=== PATIENT | female | born 1970 | race African-American/Black ===

== ENCOUNTER 2019-09-10 19:44 | Emergency (ER) | payer OTHER, SELFPAY ==
[2019-09-10 19:48] VITALS: BP 174/80; PULSE 102; RESP 22; TEMP 37.2; O2SAT 98
--- NOTE | 2019-09-10 20:54 | PC.NURSE ---
called pt to take back to room, no response.
--- NOTE | 2019-09-10 21:03 | PC.NURSE ---
attempting to call pt to go back to room, no responce.
== END 2019-09-10 21:05 | disposition left against medical advice (07) ==
LOC: ANHED 21:06
PROVIDERS: Emergency Provider Emergency Medicine
DX: R05 Cough (principal)
CPT/HCPCS: 87804; 99199

== ENCOUNTER 2019-11-29 15:04 | Outpatient (CLI) | payer OTHER, SELFPAY ==
--- NOTE | ~2019-11-29 | MR_ITS ---
EXAMINATION: MR lumbar spine wo [facility] EXAM DATE: 11/29/2019 16:12 INDICATION: Low back pain. TECHNIQUE: Multi-sequential, multiplanar MR images of the lumbar spine were obtained without contrast . Sagittal T1, T2, T2 fat saturation images. Axial T2 weighted images. There is no prior study for comparison. FINDINGS: There are disc extrusions at T12-L1 and L1-2 which will be described below. There is mild d isc disease at all thoracolumbar levels. There is 3 mm retrolisthesis L5 on S1. The vertebral bodies are otherwise aligned. The conus medullaris terminates at the L1/2 level and has normal signal inte nsity and morphology. There are no suspicious marrow signal abnormalities. Paraspinal soft tissue is unremarkable. Level by level evaluation: T12-L1: There is mild disc bulge with superimposed small to moderate sized extrusion centrally, with cephalad migration. Facet arthropathy: Mild. Neural foraminal stenosis: Mild left. Central canal stenosis: Mild. L1-L2: There is a mild to moderate diffuse disc bulge asymmetric to the right with superimposed moder ate-sized right central extrusion, mild inferior migration. Facet arthropathy: Mild. Neural foraminal stenosis: Mild right. Central canal stenosis: Mild to moderate. L2-L3: There is a minimal diffuse disc bulge. Facet arthropathy: Mild to moderate. Neural foraminal stenosis: No stenosis. Central canal stenosis: No stenosis. L3-L4: There is a minimal diffuse disc bulge. Facet arthropathy: Mild to moderate. Neural foraminal stenosis: No stenosis. Central canal stenosis: No stenosis. L4-L5: There is a mild diffuse disc bulge. Facet arthropathy: Mild to moderate. Neural foraminal stenosis: Moderate left, mild to moderate right. Central canal stenosis: Mild. L5-S1: There is a mild to moderate diffuse disc bulge. Facet arthropathy: Mild to moderate. Neural foraminal stenosis: Mild to moderate left, mild right. Central canal stenosis: Mild. IMPRESSION: 1. T12-L1 and L1-2 disc extrusions as above. 2. Overall mild to moderate lumbar spondylosis. Reviewed, dictated and finalized at location A.
--- NOTE | ~2019-11-29 | XR_ITS ---
EXAMINATION: XR lumbar spine min 4V EXAM DATE: 11/29/2019 16:33 INDICATION: Low back pain, 2 cardiac stents. TECHNIQUE: Lumber spine frontal, lateral, lateral L5-S1 projections for interpretation. Additional l ateral flexion and lateral extension projections obtained. There are no prior studies for comparison. FINDINGS: Mild diffuse thoracolumbar disc disease. Large endplate osteophytes at the L3-4 level. Vert ebral bodies are aligned on all the lateral projections. There is mild to moderate number facet arthr opathy. Sacrum, sacroiliac joints, sacral arcuate lines are intact. Paraspinal soft tissue is unremar kable. IMPRESSION: Mild lumbar disc disease, mild to moderate arthropathy. Reviewed, dictated and finalized at location A.
== END 2019-11-29 15:05 | disposition home or self-care (01) ==
DX: M51.36 Other intervertebral disc degeneration, lumbar region (principal); M47.896 Other spondylosis, lumbar region; M51.25 Other intervertebral disc displacement, thoracolumbar region; M51.24 Other intervertebral disc displacement, thoracic region; M51.26 Other intervertebral disc displacement, lumbar region
CPT/HCPCS: 72110; 72148

== ENCOUNTER 2021-09-04 15:41 | Outpatient (CLI) | payer OTHER, SELFPAY ==
--- NOTE | ~2021-09-04 | XR_ITS ---
XR lumbar spine min 4V 09/04/2021 16:50 Indication: Back pain. Spondylosis. Procedure: 5 views lumbar spine Comparison: 11/29/2019 Findings: There is mild disc narrowing at L4-5 and L5-S1. There is facet hypertrophy of the mid and l ower lumbar spine. No fracture, subluxation or spondylolisthesis. Prominent ventral osteophytes at mu ltiple levels including L1-2, L2-3 and L3-4. Sacral foramen are symmetric. There is osteoarthritis of the right hip. Impression: 1: Mild-moderate lumbar spondylosis. Reviewed, dictated and finalized at location A. LE EXAMINER Impression: 1: Mild-moderate lumbar spondylosis.
== END 2021-09-04 15:42 | disposition home or self-care (01) ==
LOC: ANHIMG 15:48
PROVIDERS: PCP Family Medicine; Visit Provider Nurse Practitioner Adult Health
DX: M47.25 Other spondylosis with radiculopathy, thoracolumbar region (principal)
CPT/HCPCS: 72110

== ENCOUNTER 2022-02-28 11:43 | Emergency (ER) | payer OTHER, SELFPAY ==
--- NOTE | ~2022-02-28 | XR_ITS ---
EXAMINATION: XR lumbar spine 2-3V DATE: 02/28/2022 14:09 INDICATION: Low back pain TECHNIQUE: Anteroposterior and lateral views of the lumbar spine, and cone-down lateral view of the l umbosacral junction were obtained. COMPARISON: 09/04/2021 FINDINGS: Bone alignment is normal. There is no fracture. The vertebral body heights are maintained. There is mild loss of intervertebral disc space height in the lower lumbar spine. Moderate facet oste oarthritis is noted. Degenerative osteophytes project from the anterior endplates of multiple vertebr al bodies. IMPRESSION: 1. Mild lumbar spondylosis without acute findings or significant interval change. Reviewed, dictated and finalized at location A. IMPRESSION: 1. Mild lumbar spondylosis without acute findings or significant interval smyth kike
[2022-02-28 11:46] VITALS: BP 168/108; PULSE 95; RESP 18; TEMP 37.1; O2SAT 100
[2022-02-28] MEDS: CYCLOBENZAPRINE HCL 10 MG TABLET PO (14:01)
[2022-02-28] MEDS: KETOROLAC 30 MG/ML VIAL (*BKC) IM (14:01)
--- NOTE | 2022-02-28 16:42 | ED.BACK ---
HPI - Back Pain/Injury General Chief Complaint: Back Pain/Injury Stated Complaint: back pain Time Seen by Provider: 02/28/22 12:18 History of Present Illness HPI Narrative: Patient is a 51-year-old female who presents ER with low back pain radiating down her left leg. Sharp. No recent injury or trauma. She has been taking ibuprofen at home without improvement. No urinary or fecal incontinence. No saddle anesthesia. Patient reports she has had the symptoms for 3 years. She has had multiple rounds of physical therapy and has had 2 MRIs. She was referred to spine surgery at [facility]. She is seeing them and they want to do a spinal cord stimulator. Related Data Home Medications Medication Instructions Recorded Confirmed amlodipine 10 mg tablet 10 mg PO DAILY 06/16/19 fluticasone propionate 50 2 spray intranasal DAILY 06/16/19 mcg/actuation nasal spray,suspension folic acid 1 mg tablet 1 mg PO DAILY 06/16/19 hydrochlorothiazide 12.5 mg capsule 12.5 mg PO DAILY 06/16/19 hydrocodone 5 mg-acetaminophen 325 1 tablet PO Q8H PRN 06/16/19 mg tablet lisinopril 20 mg tablet 20 mg PO DAILY 06/16/19 tramadol 50 mg tablet 50 mg PO Q6H PRN 06/16/19 Allergies Allergy/AdvReac Type Severity Reaction Status Date / Time Sulfa (Sulfonamide Allergy Unknown Hives Verified 05/29/19 08:56 Antibiotics) Review of Systems Review of Systems: All systems reviewed & are unremarkable except as noted in HPI and below Constitutional: Constitutional: Denies chills, Denies fatigue and Denies fever(s) Cardiovascular: Cardiovascular: Denies chest pain and Denies radiating jaw, neck or arm pain Respiratory: Respiratory: Denies cough and Denies dyspnea Genitourinary: Genitourinary: Denies nocturia, Denies dysuria and Denies urinary incontinence Musculoskeletal: Musculoskeletal: Reports back pain, Denies arthralgias and Denies joint swelling Neurologic: Denies headache(s), Denies focal weakness and Denies numbness PMF Past Medical History Medical History (Updated 02/28/22 @ 16:48 by Kt Balderas MD) Chronic sciatica Essential hypertension Smoking Syncope and collapse Surgical History Surgical History (Updated 06/16/19 @ 08:18 by Irma Saleh CMA) H/O tubal ligation History of breast surgery Family History Family History (System 05/29/19 @ 08:56 by Kendy Jackson) Father Family history of sickle cell trait Hypertension Cerebrovascular accident Mother Family history of malignant neoplasm of breast Social History Social History (System 05/29/19 @ 08:56 by Kendy Jackson) Smoking status: Current every day smoker Alcohol intake: current Exam Narrative: GENERAL: Well-appearing, well-nourished, and in no acute distress. HEAD: Normocephalic, atraumatic. CHEST: Clear to auscultation. No respiratory distress. HEART: Regular rate and rhythm. Normal peripheral pulses. BACK: Tender palpation lower lumbar midline and left paraspinal musculature at L4-L5 region. No palpable spasm. No step-offs. No bruising or abrasions. EXTREMITIES: Normal range of motion. No edema. SKIN: Warm, dry, no rash. NEURO: No focal deficits. Alert and oriented x3. PSYCH: Normal mood and affect. Course Course Emergency Course: Patient informed of results. Encouraged follow-up with her spine surgeon and will provide muscle relaxers. Vital Signs Vital signs: Vital Signs Temperature 98.7 F 02/28/22 11:46 Pulse Rate 95 02/28/22 11:46 Respiratory Rate 18 02/28/22 11:46 Blood Pressure 168/108 H 02/28/22 11:46 Pulse Oximetry 100 02/28/22 11:46 Oxygen Delivery Room Air 02/28/22 11:46 Temperature 98.7 F 02/28/22 11:46 Pulse Rate 95 02/28/22 11:46 Respiratory Rate 18 02/28/22 11:46 Blood Pressure 168/108 H 02/28/22 11:46 Pulse Oximetry 100 02/28/22 11:46 Oxygen Delivery Room Air 02/28/22 11:46 MDM - Back Pain/Injury Imaging Data Rad
[2022-02-28 17:05] VITALS: BP 146/97; PULSE 84; RESP 15; O2SAT 98
== END 2022-02-28 17:05 | disposition home or self-care (01) ==
PROVIDERS: Emergency Provider Emergency Medicine
DX: M54.42 Lumbago with sciatica, left side (principal); I10 Essential (primary) hypertension; F17.200 Nicotine dependence, unspecified, uncomplicated; M47.816 Spondylosis without myelopathy or radiculopathy, lumbar region
CPT/HCPCS: 72100; 96372; 99283; A9270; J1885

== ENCOUNTER 2022-08-04 08:17 | Inpatient (IN) | payer OTHER, SELFPAY ==
[2022-08-04] VITALS (40 sets, daily range): BP systolic 110–155; BP diastolic 68–117; PULSE 76–101; RESP 13–26; TEMP 36.6–36.7; O2SAT 85–100; BMI 37.8
--- NOTE | ~2022-08-04 | XR_ITS ---
EXAMINATION: XR chest 2V DATE: 08/04/2022 10:18 INDICATION: Shortness of breath and cough TECHNIQUE: AP and lateral views of the chest are obtained. COMPARISON: None available FINDINGS: The lungs are free of acute opacities. No pleural effusion or pneumothorax. The cardiomedia stinal silhouette is normal. There is moderate thoracic spondylosis. IMPRESSION: 1. No acute cardiopulmonary abnormality. Reviewed, dictated and finalized at location L. INAL RESEARCHER
--- NOTE | 2022-08-04 08:28 | ECG_ITS ---
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
[2022-08-04 08:41] LABS: Basophils Absolute Auto 0.1 K/mm3 (0.0-0.1); Basophils Percent Auto 0.8 % (0.2-1.2); Eosinophils Absolute Auto 0.3 K/mm3 (0-0.3); Eosinophils Percent Auto 4.6 % (0-4.4); Hematocrit 41.3 % (37.0-47.0); Hemoglobin 14.1 g/dL (12.0-15.0); Immature Granulocyte Absolute 0.03 K/mm3 (0.00-0.031); Immature Granulocyte Percent A 0.4 % (0-0.5); Lymphocytes Absolute Auto 1.48 K/mm3 (0.9-3.2); Lymphocytes Percent Auto 20.5 % (18.3-44.2); Mean Corpuscular HGB Conc 34.1 g/dl (32-36); Mean Corpuscular Hemoglobin 29.6 pg (26-34); Mean Corpuscular Volume 86.8 fl (80-100); Mean Platelet Volume 9.1 fl (7.4-10.4); Monocytes Absolute Auto 0.6 K/mm3 (0.1-0.6); Monocytes Percent Auto 8.3 % (2.6-8.5); Neutrophils Absolute Auto 4.7 K/mm3 (1.3-6.7); Neutrophils Percent Auto 65.4 % (45.5-73.1); Platelet Count Result 313 k/mm3 (150-375); Red Blood Count 4.76 M/mm3 (4.2-5.4); Red Cell Distribution Width 13.9 % (11.5-14.5); White Blood Count 7.2 K/mm3 (4.5-10.0)
[2022-08-04] MEDS: IPRATROPIUM BR 0.02% INH SOLN 0.5 MG/2.5 ML VIAL 1.5 MG INHALATION (08:55)
[2022-08-04] MEDS: ALBUTEROL SULFATE NEB 2.5 MG/3 ML INH 15 MG INHALATION (08:56)
--- NOTE | 2022-08-04 09:45 | ED.SOB ---
HPI - SOB/Dyspnea General Chief Complaint: Shortness of Breath/Dyspnea Stated Complaint: sob Time Seen by Provider: 08/04/22 08:18 History of Present Illness HPI Narrative: Patient is a 52-year-old female who presents ER with shortness of breath. She has history of asthma. Reports she has been having increased dyspnea for the last 3 days. No fevers or chills or sweats. No chest pain but does have tightness related to her asthma. No productive cough. Audible wheezes bedside. Patient hypoxic upon arrival. Related Data Home Medications Medication Instructions Recorded Confirmed amlodipine 10 mg tablet 10 mg PO DAILY 06/16/19 08/04/22 fluticasone propionate 50 2 spray intranasal DAILY 06/16/19 08/04/22 mcg/actuation nasal spray,suspension folic acid 1 mg tablet 1 mg PO DAILY 06/16/19 08/04/22 hydrochlorothiazide 12.5 mg capsule 12.5 mg PO DAILY 06/16/19 08/04/22 hydrocodone 5 mg-acetaminophen 325 2 tablet PO Q6H PRN Pain 06/16/19 08/04/22 mg tablet lisinopril 20 mg tablet 20 mg PO DAILY 06/16/19 08/04/22 Allergies Allergy/AdvReac Type Severity Reaction Status Date / Time Sulfa (Sulfonamide Allergy Unknown Hives Verified 08/04/22 13:28 Antibiotics) Review of Systems Review of Systems: All systems reviewed & are unremarkable except as noted in HPI and below Constitutional: Constitutional: Denies chills, Denies fatigue and Denies fever(s) ENT: Denies nasal congestion and Denies sore throat Cardiovascular: Cardiovascular: Denies chest pain and Denies rapid heart rate Respiratory: Respiratory: Reports cough, Reports dyspnea and Reports wheezing Gastrointestinal: Gastrointestinal: Denies abdominal pain, Denies nausea and Denies vomiting [facility] Past Medical History Medical History Chronic back pain Chronic sciatica Essential hypertension Smoking Syncope and collapse Tobacco abuse Surgical History Surgical History H/O tubal ligation History of breast surgery Family History Family History Father Family history of sickle cell trait Hypertension Cerebrovascular accident Mother Family history of malignant neoplasm of breast Social History Social History (Updated 08/04/22 @ 15:05 by Siria Ayala NP) Social History: The patient lives with her and she has 3 children. The patient stated that she stem to smoking half a pack a cigarettes a day. She said that she occasionally drinks alcohol she likes to drink read suite wine. She is not currently working and is here to take care of her 85-year-old mother. Her is the durable power last sawyer for healthcare. Code status full code Years smoked: 37 Smoking status: Current every day smoker Tobacco type: cigarettes Alcohol intake: current Drinks per week: 1 Substance use type: marijuana Other substance usage details: edibles; Last use: last week Lack of Transportation: No Lack of Food: Never True Current Housing: I Have Housing Concerned About Future Housing: No Difficulty Paying Gas/Electric Bills: No Difficulty Paying for Meds: No Currently Unemployed: No Education: High School Diploma/GED Difficulty w/ Childcare or Family Care: No Spiritual care concerns: No Exam Narrative: GENERAL: Well-appearing, well-nourished, and in no acute distress. HEAD: Normocephalic, atraumatic. EYES: PERRL and EOMI. ENT: Mucous membranes moist. CHEST: Inspiratory and expiratory wheezing. Mild increased respiratory rate. HEART: Regular rate and rhythm. Normal peripheral pulses. ABDOMEN: Soft, nontender, nondistended. EXTREMITIES: Normal range of motion. No edema. SKIN: Warm, dry, no rash. NEURO: Alert and oriented x3. PSYCH: Normal mood and affect. Course Course Emergency Course: Patient with severe persistent wheezing inspiratory
[2022-08-04] MEDS: methylPREDNISolone SOD SUCC 125 MG VIAL IV PUSH (10:08)
[2022-08-04 10:14] LABS: Alanine Aminotransferase 16 U/L (6-35); Albumin Level 4.5 g/dL (3.5-5.1); Alkaline Phosphatase 103 U/L (38-126); Anion Gap 8 mmol/L (8-16); Aspartate Amino Transferase 20 U/L (14-36); Bilirubin,Total 0.9 mg/dL (0.2-1.3); Blood Urea Nitrogen 11 mg/dL (7-17); Carbon Dioxide 27 mmol/L (22-30); Chloride 101 mmol/L (98-107); Estimated CRCL calculation 105 ml/min; Estimated Glomerular Filt Rate > 60; Glucose 124 mg/dL (65-110); Potassium 3.2 mmol/L (3.4-5.0); Sodium 136 mmol/L (137-145)
[2022-08-04 11:41] LABS: Influenza A QL RT-PCR Negative (Negative); Influenza B QL RT-PCR Negative (Negative); SARS-CoV-2 RNA PCR Negative
--- NOTE | 2022-08-04 14:02 | PM.IMHP ---
H&P: HPI History of Present Illness Date/Time: 08/04/22 14:02 Chief Complaint: Shortness of breath Narrative: This is a 52-year-old female patient who has a history of asthma and tobacco abuse. The patient stated that over the last 3 days her shortness breath has gotten worse. The patient still continues to smoke about half pack a cigarettes a day. The patient denies any nausea vomiting or diarrhea. She denied any nausea or chills. However the patient thought that she might have COVID. No other persons in the household have been sick she denied any chest tightness. She has had a nonproductive cough. The patient was hypoxic upon arrival in she was placed on oxygen at 2 L per nasal cannula. The patient does not wear oxygen at home. Chest x-ray was read as no acute cardiopulmonary disease. Potassium was 3.2. Sodium 136. She was found to be negative for influenza A/B and COVID. The patient was given nebulizer treatments and Solu-Medrol. The patient is being admitted to observation status on the date of service of 08/04/2022. Review of Systems Review of Systems: See HPI All systems reviewed & are unremarkable except as noted in HPI and below Constitutional: Constitutional: Reports as per HPI and Reports no additional constitutional complaints Eyes: Eyes: Reports as per HPI and Reports no additional eye complaints ENT: Reports system reviewed and no additional complaints, except as documented and Reports Normal hearing present Cardiovascular: Cardiovascular: Reports no additional cardiovascular complaints Respiratory: Respiratory: Reports no additional respiratory complaints and Reports no additional respiratory complaints Gastrointestinal: Gastrointestinal: Reports as per HPI and Reports no additional gastrointestinal complaints Musculoskeletal: Musculoskeletal: Reports no additional musculoskeletal complaints Integumentary/Breasts: Skin/Breast: Reports system reviewed and no additional complaints, except as docu and Reports as per HPI Neurologic: Reports system reviewed and no additional complaints, except as documented, Reports as per HPI and Reports Normal hearing present Psychiatric: Psychiatric: Reports no additional psychiatric complaints and Reports as per HPI Endocrine: Endocrine: Reports no additional endocrine complaints Hematologic/Lymphatic: Hematologic/Lymphatic: Reports no additional hematologic/lymphatic complaints Allergic/Immunologic: Allergic/Immunologic: Reports no additional allergic/immunologic complaints PMF Past Medical History Medical History Chronic back pain Chronic sciatica Essential hypertension Smoking Syncope and collapse Tobacco abuse Surgical History Surgical History H/O tubal ligation History of breast surgery Family History Family History Father Family history of sickle cell trait Hypertension Cerebrovascular accident Mother Family history of malignant neoplasm of breast Social History Social History (Updated 08/04/22 @ 15:05 by Siria Ayala NP) Social History: The patient lives with her and she has 3 children. The patient stated that she stem to smoking half a pack a cigarettes a day. She said that she occasionally drinks alcohol she likes to drink read suite wine. She is not currently working and is here to take care of her 85-year-old mother. Her is the durable power workers compensation defense attorney for healthcare. Code status full code Years smoked: 37 Smoking status: Current every day smoker Tobacco type: cigarettes Alcohol intake: current Drinks per week: 1 Substance use type: marijuana Other substance usage details: edibles; Last use: last week Lack of Transportation: No Lack of Food: Never True Current Housing: I Have Housing Concerned About Future Housing: No Diff
[2022-08-04] MEDS: IPRATROPIUM BR 0.02% INH SOLN 0.5 MG/2.5 ML VIAL INHALATION ×2 (14:36→19:30)
[2022-08-04] MEDS: ALBUTEROL SULFATE NEB 2.5 MG/3 ML INH 5 MG INHALATION ×2 (14:37→19:31)
[2022-08-04] MEDS: HYDROcodone/acetaminophen (*CRX) 5-325 MG TABLET 2 TAB PO (15:51)
[2022-08-04 16:29] LABS: Glucose Point of Care 232 mg/dl (65-105)
[2022-08-04] MEDS: MAGNESIUM SULF 2 GM/WATER 50ML 2 GM/50 ML BAG IVPB (17:38)
[2022-08-04] MEDS: POTASSIUM CHLORIDE 20 MEQ PACKET (FOR LIQUID) 40 MEQ PO (17:39)
[2022-08-04] MEDS: NICOTINE (*PBKC) 14 MG PATCH 1 PATCH TRANSDERM (17:40)
[2022-08-04] MEDS: methylPREDNISolone SOD SUCC 125 MG VIAL 60 MG IV PUSH (17:42)
[2022-08-04] MEDS: methocarbamoL 500 MG TABLET PO (17:42)
[2022-08-05] VITALS (16 sets, daily range): BP systolic 129–143; BP diastolic 77–85; PULSE 80–105; RESP 14–18; TEMP 36.1–37.4; O2SAT 95–100; BMI 37.8
[2022-08-05] MEDS: methylPREDNISolone SOD SUCC 125 MG VIAL 60 MG IV PUSH ×5 (00:22→23:59)
[2022-08-05] MEDS: ALBUTEROL SULFATE NEB 2.5 MG/3 ML INH 5 MG INHALATION ×4 (02:10→21:52)
[2022-08-05] MEDS: IPRATROPIUM BR 0.02% INH SOLN 0.5 MG/2.5 ML VIAL INHALATION ×4 (02:11→21:53)
[2022-08-05] MEDS: HYDROcodone/acetaminophen (*CRX) 5-325 MG TABLET 2 TAB PO ×2 (05:59→20:19)
[2022-08-05 06:10] LABS: Basophils Percent Auto 0.2 % (0.2-1.2); Hematocrit 38.2 % (37.0-47.0); Hemoglobin 12.8 g/dL (12.0-15.0); Immature Granulocyte Absolute 0.07 K/mm3 (0.00-0.031); Immature Granulocyte Percent A 0.7 % (0-0.5); Lymphocytes Absolute Auto 1.58 K/mm3 (0.9-3.2); Lymphocytes Percent Auto 15.3 % (18.3-44.2); Mean Corpuscular HGB Conc 33.5 g/dl (32-36); Mean Corpuscular Hemoglobin 28.8 pg (26-34); Mean Platelet Volume 9.4 fl (7.4-10.4); Monocytes Absolute Auto 0.3 K/mm3 (0.1-0.6); Monocytes Percent Auto 3.3 % (2.6-8.5); Neutrophils Absolute Auto 8.3 K/mm3 (1.3-6.7); Neutrophils Percent Auto 80.5 % (45.5-73.1); Platelet Count Result 317 k/mm3 (150-375); Red Blood Count 4.44 M/mm3 (4.2-5.4); Red Cell Distribution Width 13.6 % (11.5-14.5); White Blood Count 10.3 K/mm3 (4.5-10.0)
[2022-08-05 06:24] LABS: Lactic Acid Reflex 2.2 mmol/L (0.7-2.0)
[2022-08-05 06:27] LABS: Alanine Aminotransferase 17 U/L (6-35); Albumin Level 4.2 g/dL (3.5-5.1); Alkaline Phosphatase 88 U/L (38-126); Anion Gap 6 mmol/L (8-16); Aspartate Amino Transferase 18 U/L (14-36); Bilirubin,Total 0.4 mg/dL (0.2-1.3); Blood Urea Nitrogen 21 mg/dL (7-17); Calcium 9.3 mg/dL (8.4-10.2); Carbon Dioxide 28 mmol/L (22-30); Chloride 99 mmol/L (98-107); Estimated CRCL calculation 91 ml/min; Estimated Glomerular Filt Rate > 60; Glucose 220 mg/dL (65-110); Magnesium 2.6 mg/dL (1.6-2.3); Potassium 3.8 mmol/L (3.4-5.0); Sodium 133 mmol/L (137-145)
[2022-08-05 06:49] LABS: Thyroid Stimulating Hormone Reflex 0.296 uIU/mL (0.465-4.68)
[2022-08-05 07:23] LABS: Free T4 Free Thyroxine Reflex 0.88 ng/dL (0.78-2.19)
[2022-08-05 08:51] LABS: Glucose Point of Care 217 mg/dl (65-105)
[2022-08-05] MEDS: hydroCHLOROthiazide 12.5 MG CAPSULE PO (09:45)
[2022-08-05] MEDS: amLODIPine BESYLATE 5 MG TABLET 10 MG PO (09:45)
[2022-08-05] MEDS: lisinopriL 20 MG TABLET PO (09:45)
[2022-08-05] MEDS: methocarbamoL 500 MG TABLET PO ×3 (09:45→17:37)
[2022-08-05] MEDS: FOLIC ACID 1 MG TABLET PO (09:45)
[2022-08-05] MEDS: POTASSIUM CHLORIDE 20 MEQ PACKET (FOR LIQUID) PO (09:45)
[2022-08-05] MEDS: NICOTINE (*PBKC) 14 MG PATCH 1 PATCH TRANSDERM (09:45)
[2022-08-05] MEDS: ENOXAPARIN 40 MG/0.4 ML SYRINGE SUB-Q (09:45)
[2022-08-05 10:29] LABS: Reflex Lactic Acid Yes or No Add Lactic
[2022-08-05 11:12] LABS: Lactic Acid 3.8 mmol/L (0.7-2.0)
[2022-08-05 11:24] LABS: Glucose Point of Care 356 mg/dl (65-105)
[2022-08-05] MEDS: INSULIN ASPART (*BKC) 100 UNITS/ML SUB-Q ×2 (12:11→17:37)
--- NOTE | 2022-08-05 16:15 | PM.IMPN ---
Progress Note: A&P Assessment and Plan (1) COPD exacerbation: Code(s): J44.1 - Chronic obstructive pulmonary disease with (acute) exacerbation Status: Suspected Assessment and Plan: presented with significant wheezing preceded by recent upper respiratory illness. patient with diffuse wheezing on exam. Continue IV Solu-Medrol 60 mg q6h. Wean as tolerated. Continue DuoNebs. continue supplemental O2 as needed. Patient is currently requiring 2 L, wean as tolerated. She will need outpatient referral for PFTs. (2) Hypokalemia: Code(s): E87.6 - Hypokalemia Status: Acute Assessment and Plan: Resolved with supplementation. Continue to monitor BMP (3) Elevated lactic acid level: Code(s): R79.89 - Other specified abnormal findings of blood chemistry Status: Acute Assessment and Plan: lactic acid was elevated on morning labs. patient is not acidotic and serum bicarb is within normal limits. This is likely due to beta agonist use. (4) Chronic back pain: Code(s): M54.9 - Dorsalgia, unspecified; G89.29 - Other chronic pain Status: Chronic Assessment and Plan: No acute issues. Patient is established with pain management And neuro surgery. She also follows with outpatient PT and OT. Continue home medications and supportive care (5) Essential hypertension: Code(s): I10 - Essential (primary) hypertension Status: Acute Assessment and Plan: blood pressures are stable. Continue home hydrochlorothiazide, amlodipine, and lisinopril (6) Tobacco abuse: Code(s): Z72.0 - Tobacco use Status: Acute Assessment and Plan: patient is down to 6-7 cigarettes per day. Currently using a nicotine patch during admission. Discussed smoking cessation with the patient and she is motivated to quit. (7) Type 2 diabetes mellitus: Code(s): E11.9 - Type 2 diabetes mellitus without complications Status: Acute Assessment and Plan: patient reports a history of diabetes but does not appear to be on any insulin or hypoglycemic agents. Blood sugars are elevated this admission secondary to steroids. Will begin scheduled NovoLog with meals and Lantus q.h.s.. Continue high-dose sliding scale insulin, Accu-Cheks, and hypoglycemic protocol. Check updated A1c Subjective Date/time seen: 08/05/22 16:15 Interval history: Date of service: 08/05/2022 Selene Painter is a 52-year-old female with history of hypertension, type 2 diabetes mellitus, tobacco abuse, and sciatica who is seen in follow-up for suspected COPD exacerbation. Patient does not have a COPD diagnosis, however is a chronic smoker and complains of wheezing. review of prior notes indicate patient states that she does have history of asthma, however patient denies any history of asthma diagnosis to me. States that she has never been informed of an asthma diagnosis or a COPD diagnosis. Given her overall clinical picture, seems more consistent with COPD. states that she was having cold symptoms including runny nose, cough, and congestion and now has persistent wheezing. She denies any significant cough. Denies fever, chills, nausea, or vomiting. Review of Systems Review of Systems: All systems reviewed & are unremarkable except as noted in HPI and below Exam Narrative: General: obese, well-appearing 52-year-old female, sitting up in bed, comfortable, NARD Neuro: awake, alert and oriented x4, speech clear, no focal neuro deficits noted HEENMT: normocephalic, atraumatic, EOMI, sclerae anicteric Respiratory: diffuse wheezes, nonlabored breathing, able to speak in complete sentences, no accessory muscle use Cardio: regular rate, regular rhythm with S1-S2 Abdomen: nondistended, normoactive bowel sounds, soft, nontender to palpation Extremities: no edema, erythema, or tenderness to palpation, DP pulses 2+ bilaterally Skin: no rashes or les
[2022-08-05 16:43] LABS: Glucose Point of Care 239 mg/dl (65-105)
[2022-08-05] MEDS: INSULIN ASPART (*BKC) 100 UNITS/ML 8 UNITS SUB-Q (17:38)
[2022-08-05] MEDS: INSULIN GLARGINE (*BKC) 100 UNITS/ML 30 UNITS SUB-Q (20:20)
[2022-08-05 20:24] LABS: Glucose Point of Care 192 mg/dl (65-105)
[2022-08-06] VITALS (12 sets, daily range): BP systolic 125–156; BP diastolic 77–86; PULSE 85–106; RESP 14–22; TEMP 36.1–36.3; O2SAT 95–100
[2022-08-06] MEDS: ALBUTEROL SULFATE NEB 2.5 MG/3 ML INH 5 MG INHALATION ×4 (02:54→19:26)
[2022-08-06] MEDS: IPRATROPIUM BR 0.02% INH SOLN 0.5 MG/2.5 ML VIAL INHALATION ×4 (02:55→19:26)
[2022-08-06] MEDS: methylPREDNISolone SOD SUCC 125 MG VIAL 60 MG IV PUSH ×3 (05:04→21:23)
[2022-08-06 05:27] LABS: Total Triiodothyronine (T3) 0.94 NG/ML (0.97-1.69)
[2022-08-06 06:13] LABS: Hematocrit 40.5 % (37.0-47.0); Hemoglobin 13.2 g/dL (12.0-15.0); Mean Corpuscular HGB Conc 32.6 g/dl (32-36); Mean Corpuscular Hemoglobin 28.9 pg (26-34); Mean Corpuscular Volume 88.8 fl (80-100); Mean Platelet Volume 9.7 fl (7.4-10.4); Platelet Count Result 342 k/mm3 (150-375); Red Blood Count 4.56 M/mm3 (4.2-5.4); Red Cell Distribution Width 14.1 % (11.5-14.5); White Blood Count 17.5 K/mm3 (4.5-10.0)
[2022-08-06 06:32] LABS: Anion Gap 6 mmol/L (8-16); Blood Urea Nitrogen 27 mg/dL (7-17); Calcium 9.5 mg/dL (8.4-10.2); Carbon Dioxide 27 mmol/L (22-30); Chloride 103 mmol/L (98-107); Estimated CRCL calculation 91 ml/min; Estimated Glomerular Filt Rate > 60; Glucose 200 mg/dL (65-110); Magnesium 2.5 mg/dL (1.6-2.3); Potassium 4.5 mmol/L (3.4-5.0); Sodium 136 mmol/L (137-145)
[2022-08-06 07:30] LABS: Hemoglobin A1C 5.9 % (<5.7)
[2022-08-06 08:08] LABS: Glucose Point of Care 174 mg/dl (65-105)
[2022-08-06] MEDS: FOLIC ACID 1 MG TABLET PO (09:09)
[2022-08-06] MEDS: lisinopriL 20 MG TABLET PO (09:09)
[2022-08-06] MEDS: POTASSIUM CHLORIDE 20 MEQ PACKET (FOR LIQUID) PO (09:09)
[2022-08-06] MEDS: hydroCHLOROthiazide 12.5 MG CAPSULE PO (09:09)
[2022-08-06] MEDS: amLODIPine BESYLATE 5 MG TABLET 10 MG PO (09:09)
[2022-08-06] MEDS: methocarbamoL 500 MG TABLET PO ×3 (09:09→17:53)
[2022-08-06] MEDS: ENOXAPARIN 40 MG/0.4 ML SYRINGE SUB-Q (09:09)
[2022-08-06] MEDS: NICOTINE (*PBKC) 14 MG PATCH 1 PATCH TRANSDERM (09:10)
[2022-08-06] MEDS: INSULIN ASPART (*BKC) 100 UNITS/ML 8 UNITS SUB-Q ×3 (09:10→17:53)
[2022-08-06 11:41] LABS: Glucose Point of Care 171 mg/dl (65-105)
[2022-08-06] MEDS: FLUTICASONE PROPIONATE 0.05% NA SPR 16 GM BTL (*BKC) 2 SPRAY NASAL (12:38)
--- NOTE | 2022-08-06 15:59 | PM.IMPN ---
Progress Note: A&P Assessment and Plan (1) COPD exacerbation: Code(s): J44.1 - Chronic obstructive pulmonary disease with (acute) exacerbation Status: Suspected Assessment and Plan: Presented with significant wheezing preceded by recent upper respiratory illness. patient with diffuse wheezing on exam. Continue IV Solu-Medrol 60 mg q8h. Wean as tolerated. Continue DuoNebs. Continue supplemental O2 as needed. Patient is currently requiring 2 L, wean as tolerated. She will need outpatient referral for PFTs. (2) Hypokalemia: Code(s): E87.6 - Hypokalemia Status: Acute Assessment and Plan: Resolved with supplementation. Potassium 4.5 today Continue to monitor BMP (3) Elevated lactic acid level: Code(s): R79.89 - Other specified abnormal findings of blood chemistry Status: Acute Assessment and Plan: lactic acid was elevated on 08/05. patient is not acidotic and serum bicarb is within normal limits. This is likely due to beta agonist use. no further monitoring required (4) Chronic back pain: Code(s): M54.9 - Dorsalgia, unspecified; G89.29 - Other chronic pain Status: Chronic Assessment and Plan: No acute issues. Patient is established with pain management. next appointment on 08/11 Continue home medications and supportive care (5) Essential hypertension: Code(s): I10 - Essential (primary) hypertension Status: Acute Assessment and Plan: blood pressures are stable. Continue home hydrochlorothiazide, amlodipine, and lisinopril (6) Tobacco abuse: Code(s): Z72.0 - Tobacco use Status: Acute Assessment and Plan: patient is down to 6-7 cigarettes per day. Currently using a nicotine patch during admission. Discussed smoking cessation with the patient and she is motivated to quit. (7) Type 2 diabetes mellitus: Code(s): E11.9 - Type 2 diabetes mellitus without complications Status: Acute Assessment and Plan: Patient reports a history of diabetes but does not appear to be on any insulin or hypoglycemic agents. A1c is 5.9 Blood sugars are elevated this admission secondary to steroids. Continue scheduled NovoLog with meals and Lantus q.h.s.. Continue high-dose sliding scale insulin, Accu-Cheks, and hypoglycemic protocol. Time Spent With Patient Time: 65 minutes spent on this encounter Time with patient: Greater than 35 minutes Subjective Date/time seen: 08/06/22 15:59 Interval history: Date of service: 08/06/2022 Selene Painter is a 52-year-old female with history of hypertension, type 2 diabetes mellitus, tobacco abuse, and sciatica who is seen in follow-up for suspected COPD exacerbation. Long discussion with the patient today in which she shared multiple concerns. First concern being that quite sometime ago she was hospitalized and told she has sickle cell disease versus sickle cell trait. She is frustrated that nobody has followed up on this and feels that this is not being properly cared for. Informed patient that we can provide outpatient referral to Hematology and she would like to proceed with this to ensure she is getting appropriate care. She felt satisfied with this plan. Her next concern is regarding her chronic back pain. She states that she has been to many pain management providers and overall has had very little improvement in her pain. She is concerned that she is declining and she is concerned about her inability to work with symptoms and pain that she suffers from. Her pain is no worse than normal today and she has no acute symptoms. She does have a pain management appointment on 08/11/2022. Our goal will be to have her COPD exacerbation improved and be discharged from the hospital prior to this appointment so she does not fall behind in her treatment. Her next concern is that she does occasionally feel depres
[2022-08-06 16:39] LABS: Glucose Point of Care 123 mg/dl (65-105)
[2022-08-06] MEDS: HYDROcodone/acetaminophen (*CRX) 5-325 MG TABLET 2 TAB PO (19:26)
[2022-08-06 20:31] LABS: Glucose Point of Care 144 mg/dl (65-105)
--- NOTE | 2022-08-06 20:47 | PC.NURSE ---
called AARON Ayala pt bs 144, scheduled for 30 units lantus on solumetrol at this time r/t asthma. decreased tonights dose to 15 units once.
[2022-08-06] MEDS: INSULIN GLARGINE (*BKC) 100 UNITS/ML 15 UNITS SUB-Q (21:24)
[2022-08-07] VITALS (13 sets, daily range): BP systolic 132–161; BP diastolic 88–95; PULSE 82–101; RESP 14–20; TEMP 36.3–36.9; O2SAT 95–100
[2022-08-07] MEDS: ALBUTEROL SULFATE NEB 2.5 MG/3 ML INH 5 MG INHALATION ×3 (02:34→13:37)
[2022-08-07] MEDS: IPRATROPIUM BR 0.02% INH SOLN 0.5 MG/2.5 ML VIAL INHALATION ×3 (02:34→13:37)
[2022-08-07] MEDS: methylPREDNISolone SOD SUCC 125 MG VIAL 60 MG IV PUSH ×2 (05:57→17:22)
[2022-08-07 06:23] LABS: Hematocrit 37.8 % (37.0-47.0); Hemoglobin 12.6 g/dL (12.0-15.0); Mean Corpuscular HGB Conc 33.3 g/dl (32-36); Mean Corpuscular Hemoglobin 28.8 pg (26-34); Mean Corpuscular Volume 86.5 fl (80-100); Mean Platelet Volume 9.6 fl (7.4-10.4); Platelet Count Result 346 k/mm3 (150-375); Red Blood Count 4.37 M/mm3 (4.2-5.4); Red Cell Distribution Width 13.8 % (11.5-14.5); White Blood Count 14.6 K/mm3 (4.5-10.0)
[2022-08-07 06:38] LABS: Anion Gap 5 mmol/L (8-16); Blood Urea Nitrogen 26 mg/dL (7-17); Calcium 9.2 mg/dL (8.4-10.2); Carbon Dioxide 30 mmol/L (22-30); Chloride 101 mmol/L (98-107); Estimated CRCL calculation 91 ml/min; Estimated Glomerular Filt Rate > 60; Glucose 204 mg/dL (65-110); Sodium 136 mmol/L (137-145)
[2022-08-07 08:09] LABS: Glucose Point of Care 185 mg/dl (65-105)
[2022-08-07] MEDS: INSULIN ASPART (*BKC) 100 UNITS/ML 8 UNITS SUB-Q ×3 (08:52→17:23)
[2022-08-07] MEDS: FLUTICASONE PROPIONATE 0.05% NA SPR 16 GM BTL (*BKC) 2 SPRAY NASAL (08:53)
[2022-08-07] MEDS: ENOXAPARIN 40 MG/0.4 ML SYRINGE SUB-Q (08:53)
[2022-08-07] MEDS: amLODIPine BESYLATE 5 MG TABLET 10 MG PO (08:53)
[2022-08-07] MEDS: hydroCHLOROthiazide 12.5 MG CAPSULE PO (08:54)
[2022-08-07] MEDS: lisinopriL 20 MG TABLET PO (08:54)
[2022-08-07] MEDS: NICOTINE (*PBKC) 14 MG PATCH 1 PATCH TRANSDERM (08:54)
[2022-08-07] MEDS: methocarbamoL 500 MG TABLET PO ×3 (08:54→17:23)
[2022-08-07] MEDS: FOLIC ACID 1 MG TABLET PO (08:54)
[2022-08-07] MEDS: HYDROcodone/acetaminophen (*CRX) 5-325 MG TABLET 2 TAB PO ×2 (08:59→20:42)
[2022-08-07 11:41] LABS: Glucose Point of Care 242 mg/dl (65-105)
[2022-08-07] MEDS: INSULIN ASPART (*BKC) 100 UNITS/ML SUB-Q (12:19)
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
[2022-08-07 16:39] LABS: Glucose Point of Care 150 mg/dl (65-105)
--- NOTE | 2022-08-07 20:38 | PC.NURSE ---
called DAGMAR Beltran regarding bs 138 and lantus 30 units scheduled at HS. pt tapering off solumetrol inquiring about HS lantus dose.
[2022-08-07 21:58] LABS: Glucose Point of Care 138 mg/dl (65-105)
[2022-08-07] MEDS: polyethylene glycoL 3350 17 GM POWD.PACK PO (22:31)
[2022-08-07] MEDS: INSULIN GLARGINE (*BKC) 100 UNITS/ML 15 UNITS SUB-Q (22:33)
[2022-08-08] MEDS: ALBUTEROL SULFATE NEB 2.5 MG/3 ML INH 5 MG INHALATION (02:54)
[2022-08-08] MEDS: IPRATROPIUM BR 0.02% INH SOLN 0.5 MG/2.5 ML VIAL INHALATION (02:54)
[2022-08-08 02:57] VITALS: PULSE 86; RESP 20
[2022-08-08 06:00] VITALS: BP 153/96; PULSE 76; RESP 18; TEMP 36.5; O2SAT 98
[2022-08-08 06:57] LABS: Hematocrit 42.3 % (37.0-47.0); Hemoglobin 13.8 g/dL (12.0-15.0); Mean Corpuscular HGB Conc 32.6 g/dl (32-36); Mean Corpuscular Hemoglobin 28.9 pg (26-34); Mean Corpuscular Volume 88.5 fl (80-100); Mean Platelet Volume 9.7 fl (7.4-10.4); Platelet Count Result 329 k/mm3 (150-375); Red Blood Count 4.78 M/mm3 (4.2-5.4); Red Cell Distribution Width 14.2 % (11.5-14.5); White Blood Count 12.2 K/mm3 (4.5-10.0)
[2022-08-08 07:06] LABS: Anion Gap 3 mmol/L (8-16); Blood Urea Nitrogen 22 mg/dL (7-17); Carbon Dioxide 31 mmol/L (22-30); Chloride 102 mmol/L (98-107); Estimated CRCL calculation 105 ml/min; Estimated Glomerular Filt Rate > 60; Glucose 169 mg/dL (65-110); Sodium 136 mmol/L (137-145)
[2022-08-08 07:52] LABS: Glucose Point of Care 153 mg/dl (65-105)
[2022-08-08] MEDS: INSULIN ASPART (*BKC) 100 UNITS/ML 8 UNITS SUB-Q ×2 (09:11→12:21)
[2022-08-08] MEDS: predniSONE 20 MG TABLET 40 MG PO (09:12)
[2022-08-08] MEDS: amLODIPine BESYLATE 5 MG TABLET 10 MG PO (09:12)
[2022-08-08] MEDS: NICOTINE (*PBKC) 14 MG PATCH 1 PATCH TRANSDERM (09:13)
[2022-08-08] MEDS: methocarbamoL 500 MG TABLET PO ×2 (09:13→12:19)
[2022-08-08] MEDS: lisinopriL 20 MG TABLET PO (09:13)
[2022-08-08] MEDS: FLUTICASONE PROPIONATE 0.05% NA SPR 16 GM BTL (*BKC) 2 SPRAY NASAL (09:13)
[2022-08-08] MEDS: hydroCHLOROthiazide 12.5 MG CAPSULE PO (09:13)
[2022-08-08] MEDS: ENOXAPARIN 40 MG/0.4 ML SYRINGE SUB-Q (09:14)
[2022-08-08 10:45] VITALS: PULSE 104; O2SAT 97
[2022-08-08 10:52] VITALS: PULSE 105; O2SAT 95
--- NOTE | 2022-08-08 11:04 | PCRCNOTE ---
HOME OXYGEN EVALUATION COMPLETE; PT. DOES NOT REQUIRE HOME OXYGEN. PT.'S NURSE AND CHARGE NURSE NOTIFIED.
[2022-08-08 11:43] LABS: Glucose Point of Care 116 mg/dl (65-105)
--- NOTE | 2022-08-08 12:14 | PM.DS ---
DS: Admitting Diagnosis Discharge Date 08/08/2022 Admitting Diagnosis COPD exacerbation DS: Discharge Diagnosis Discharge Diagnosis (1) COPD exacerbation: Code(s): J44.1 - Chronic obstructive pulmonary disease with (acute) exacerbation Status: Suspected Assessment and Plan: Presented with significant wheezing preceded by recent upper respiratory illness. patient with diffuse wheezing on exam. She had symptomatic improvement with IV Solu-Medrol Transitioned to p.o. prednisone 40 mg which she will continue for total of 5 days Continue with nebulized albuterol and ipratropium q.6 hours as needed Required up to 2 L supplemental O2 but was able to be weaned to room air. Home O2 eval completed and no ongoing oxygen require She has been referred to pulmonology as an outpatient for PFTs (2) Hypokalemia: Code(s): E87.6 - Hypokalemia Status: Acute Assessment and Plan: Resolved with supplementation. (3) Elevated lactic acid level: Code(s): R79.89 - Other specified abnormal findings of blood chemistry Status: Acute Assessment and Plan: lactic acid was elevated on 08/05. patient is not acidotic and serum bicarb within normal limits. This is likely due to beta agonist use. no further monitoring required (4) Chronic back pain: Code(s): M54.9 - Dorsalgia, unspecified; G89.29 - Other chronic pain Status: Chronic Assessment and Plan: No acute issues. Patient is established with pain management. next appointment on 08/11 Continue home medications and supportive care (5) Essential hypertension: Code(s): I10 - Essential (primary) hypertension Status: Acute Assessment and Plan: blood pressures stable. Continue home hydrochlorothiazide, amlodipine, and lisinopril (6) Tobacco abuse: Code(s): Z72.0 - Tobacco use Status: Acute Assessment and Plan: patient is down to 6-7 cigarettes per day. Used a nicotine patch during admission Patient was educated on smoking cessation. She is motivated to quit Requested to continue nicotine patches on discharge. 14 mg patches provided and patient will follow-up with PCP for continued use and tapering (7) Type 2 diabetes mellitus: Code(s): E11.9 - Type 2 diabetes mellitus without complications Status: Acute Assessment and Plan: Patient reports a history of diabetes but does not appear to be on any insulin or hypoglycemic agents. A1c is 5.9 Blood sugars were elevated this admission secondary to steroids. Improved during admission and expect resolution with discontinuation of steroids DS: Summary Hospital Course Hospital Course: Date of admission: 08/04/2022 Date of discharge: 08/08/2022 Selene Painter is a 52-year-old female with history of hypertension, type 2 diabetes mellitus, tobacco abuse, and sciatica who presented to the emergency department on 08/04/2022 with complaints of shortness of breath worsening over the past 3 days. On presentation to the ED, she was noted to be hypoxic at 85% and was tachypneic. She was placed on 2 L supplemental O2 with improvement. CBC unremarkable, potassium 3.2, additional laboratory unremarkable, COVID and influenza negative, and CXR showed no acute findings. She of it above of service for further evaluation and management. Please see above for further details. She had improvement with IV steroids and was able to be weaned to oral prednisone. She had symptomatic improvement. She initially required up to 2 L supplemental oxygen but was able to be weaned to room air. Home oxygen evaluation was completed on day of discharge in patient has no ongoing oxygen requirements. She will continue prednisone as an outpatient for a 5 day course. She continue with nebulized breathing treatments at home and was provided with rescue inhaler. She will follow-up with pulmonology as an outpatient for
[2022-08-08] MEDS: FOLIC ACID 1 MG TABLET PO (12:19)
[2022-08-08 13:59] VITALS: BP 133/108; PULSE 102; RESP 20; TEMP 36.4; O2SAT 90
== END 2022-08-08 16:53 | disposition home or self-care (01) | DRG 140 ==
LOC: ANHED 09:05 → ANH3MEDSUR 11:57
PROVIDERS: Nurse Practitioner; Admitting Provider Chiropractor; Emergency Provider Emergency Medicine; PCP Family Medicine; Visit Provider Physician Assistant
DX: J44.1 Chronic obstructive pulmonary disease with (acute) exacerbation (principal); E11.9 Type 2 diabetes mellitus without complications; J06.9 Acute upper respiratory infection, unspecified; E87.6 Hypokalemia; R74.02 Elevation of levels of lactic acid dehydrogenase [LDH]; T44.5X5A Adverse effect of predominantly beta-adrenoreceptor agonists, initial encounter; M54.9 Dorsalgia, unspecified; G89.29 Other chronic pain; I10 Essential (primary) hypertension; F17.210 Nicotine dependence, cigarettes, uncomplicated; Z20.822 Contact with and (suspected) exposure to COVID-19; M54.30 Sciatica, unspecified side; E66.9 Obesity, unspecified; Z68.37 Body mass index [BMI] 37.0-37.9, adult
CPT/HCPCS: 36415; 71046; 80048; 80053; 82948; 83036; 83605; 83735; 84439; 84443; 84480; 85025; 85027; 87636; 93005; 94618; 94640; 96365; 96372; 96374; 96375; 96376; 99285; A9270; G0378; G0379; J1650; J1815; J2930; J3475; J7512

== ENCOUNTER 2022-12-28 14:30 | Outpatient (CLI) | payer OTHER, SELFPAY ==
[2022-12-28 14:45] LABS: Basophils Absolute Auto 0.1 K/mm3 (0.0-0.1); Basophils Percent Auto 0.7 % (0.2-1.2); Eosinophils Absolute Auto 0.3 K/mm3 (0-0.3); Eosinophils Percent Auto 4.2 % (0-4.4); Hematocrit 40.6 % (37.0-47.0); Hemoglobin 13.5 g/dL (12.0-15.0); Immature Granulocyte Absolute 0.02 K/mm3 (0.00-0.031); Immature Granulocyte Percent A 0.3 % (0-0.5); Lymphocytes Absolute Auto 2.73 K/mm3 (0.9-3.2); Lymphocytes Percent Auto 37.9 % (18.3-44.2); Mean Corpuscular HGB Conc 33.3 g/dl (32-36); Mean Corpuscular Hemoglobin 28.7 pg (26-34); Mean Corpuscular Volume 86.4 fl (80-100); Monocytes Absolute Auto 0.4 K/mm3 (0.1-0.6); Monocytes Percent Auto 5.5 % (2.6-8.5); Neutrophils Absolute Auto 3.7 K/mm3 (1.3-6.7); Neutrophils Percent Auto 51.4 % (45.5-73.1); Platelet Count Result 344 k/mm3 (150-375); Red Cell Distribution Width 14.4 % (11.5-14.5); White Blood Count 7.2 K/mm3 (4.5-10.0)
[2022-12-28 17:05] LABS: Alanine Aminotransferase 16 U/L (6-35); Albumin Level 4.4 g/dL (3.5-5.1); Alkaline Phosphatase 81 U/L (38-126); Anion Gap 3 mmol/L (8-16); Aspartate Amino Transferase 20 U/L (14-36); Bilirubin,Total 0.6 mg/dL (0.2-1.3); Blood Urea Nitrogen 14 mg/dL (7-17); Calcium 9.7 mg/dL (8.4-10.2); Carbon Dioxide 31 mmol/L (22-30); Chloride 104 mmol/L (98-107); Estimated Glomerular Filt Rate > 60; Glucose 146 mg/dL (65-110); Lactate Dehydrogenase 142 U/L (120-246); Potassium 3.5 mmol/L (3.4-5.0); Sodium 138 mmol/L (137-145)
[2023-01-01 08:41] LABS: Hematocrit 41.1 % (35.0-45.0); Hemoglobin 13.6 g/dL (11.7-15.5); MCH 28.9 pg (27.0-33.0); MCV 87.3 fL (80.0-100.0); Red Blood Cell Count 4.71 Mill/uL (3.80-5.10)
== END 2022-12-28 14:31 | disposition home or self-care (01) ==
LOC: ANHLAB 14:31
PROVIDERS: PCP Family Medicine; Visit Provider Internal Medicine Hematology & Oncology
DX: D64.9 Anemia, unspecified (principal)
CPT/HCPCS: 36415; 80053; 83021; 83615; 85025

== ENCOUNTER 2023-01-13 08:45 | Outpatient (CLI) | payer OTHER, SELFPAY ==
[2023-01-13 09:03] LABS: Basophils Absolute Auto 0.1 K/mm3 (0.0-0.1); Basophils Percent Auto 1.3 % (0.2-1.2); Eosinophils Absolute Auto 0.2 K/mm3 (0-0.3); Eosinophils Percent Auto 3.3 % (0-4.4); Hematocrit 40.9 % (37.0-47.0); Hemoglobin 13.9 g/dL (12.0-15.0); Immature Granulocyte Absolute 0.01 K/mm3 (0.00-0.031); Immature Granulocyte Percent A 0.1 % (0-0.5); Lymphocytes Absolute Auto 3.16 K/mm3 (0.9-3.2); Mean Corpuscular Hemoglobin 28.8 pg (26-34); Mean Corpuscular Volume 84.7 fl (80-100); Monocytes Absolute Auto 0.5 K/mm3 (0.1-0.6); Monocytes Percent Auto 7.2 % (2.6-8.5); Neutrophils Absolute Auto 3.2 K/mm3 (1.3-6.7); Neutrophils Percent Auto 44.1 % (45.5-73.1); Platelet Count Result 377 k/mm3 (150-375); Red Blood Count 4.83 M/mm3 (4.2-5.4); Red Cell Distribution Width 13.9 % (11.5-14.5); White Blood Count 7.2 K/mm3 (4.5-10.0)
[2023-01-13 14:41] LABS: Creatinine Urine 142.1 mg/dL
[2023-01-13 14:43] LABS: MALB Creatinine Ratio 29.8 mg/g (0-30); Microalbumin Urine Random 42.3 mg/L (0-16.7)
[2023-01-13 14:46] LABS: Alanine Aminotransferase 15 U/L (6-35); Albumin Level 4.5 g/dL (3.5-5.1); Alkaline Phosphatase 86 U/L (38-126); Anion Gap 6 mmol/L (8-16); Aspartate Amino Transferase 18 U/L (14-36); Bilirubin,Total 0.6 mg/dL (0.2-1.3); Blood Urea Nitrogen 14 mg/dL (7-17); Calcium 9.4 mg/dL (8.4-10.2); Carbon Dioxide 29 mmol/L (22-30); Chloride 104 mmol/L (98-107); Cholesterol 176 mg/dL (0-200); Estimated Glomerular Filt Rate > 60; Glucose 107 mg/dL (65-110); HDL Direct 40 mg/dL; Potassium 3.7 mmol/L (3.4-5.0); Sodium 139 mmol/L (137-145); Triglycerides 99 mg/dL (<150)
[2023-01-13 14:55] LABS: Free T4 Free Thyroxine 1.05 ng/mL (0.78-2.19); Vitamin D 25 Hydroxy 38.9 ng/mL
[2023-01-13 14:57] LABS: LDL Cholesterol Direct 101 mg/dL
[2023-01-13 15:03] LABS: Hemoglobin A1C 6.2 % (<5.7)
[2023-01-13 15:13] LABS: Total Triiodothyronine (T3) 1.37 NG/ML (0.97-1.69)
== END 2023-01-13 08:46 | disposition home or self-care (01) ==
LOC: ANHLAB 08:46
PROVIDERS: PCP Family Medicine; Visit Provider Internal Medicine Hematology & Oncology
DX: J44.1 Chronic obstructive pulmonary disease with (acute) exacerbation (principal); D57.1 Sickle-cell disease without crisis; I10 Essential (primary) hypertension; E11.9 Type 2 diabetes mellitus without complications; E78.5 Hyperlipidemia, unspecified; E55.9 Vitamin D deficiency, unspecified
CPT/HCPCS: 36415; 80053; 80061; 82043; 82306; 83036; 84439; 84443; 84480; 85025

== ENCOUNTER 2023-04-19 10:33 | Outpatient (CLI) | payer OTHER, SELFPAY ==
[2023-04-19 12:11] LABS: Hemoglobin A1C 6.6 % (<5.7)
== END 2023-04-19 10:34 | disposition home or self-care (01) ==
PROVIDERS: PCP Family Medicine; Visit Provider Internal Medicine Hematology & Oncology
DX: E11.9 Type 2 diabetes mellitus without complications (principal)
CPT/HCPCS: 36415; 83036

== ENCOUNTER 2023-07-16 09:16 | Outpatient (CLI) | payer OTHER, SELFPAY ==
[2023-07-16 09:41] LABS: Basophils Absolute Auto 0.1 K/mm3 (0.0-0.1); Basophils Percent Auto 1.1 % (0.2-1.2); Eosinophils Absolute Auto 0.2 K/mm3 (0-0.3); Eosinophils Percent Auto 3.1 % (0-4.4); Hematocrit 38.8 % (37.0-47.0); Hemoglobin 13.2 g/dL (12.0-15.0); Immature Granulocyte Absolute 0.01 K/mm3 (0.00-0.031); Immature Granulocyte Percent A 0.1 % (0-0.5); Lymphocytes Absolute Auto 3.11 K/mm3 (0.9-3.2); Lymphocytes Percent Auto 43.9 % (18.3-44.2); Mean Corpuscular Hemoglobin 29.1 pg (26-34); Mean Corpuscular Volume 85.7 fl (80-100); Monocytes Absolute Auto 0.6 K/mm3 (0.1-0.6); Monocytes Percent Auto 7.9 % (2.6-8.5); Neutrophils Absolute Auto 3.1 K/mm3 (1.3-6.7); Neutrophils Percent Auto 43.9 % (45.5-73.1); Platelet Count Result 387 k/mm3 (150-375); Red Blood Count 4.53 M/mm3 (4.2-5.4); Red Cell Distribution Width 14.6 % (11.5-14.5); White Blood Count 7.1 K/mm3 (4.5-10.0)
[2023-07-16 13:35] LABS: Alanine Aminotransferase 16 U/L (6-35); Alkaline Phosphatase 101 U/L (38-126); Anion Gap 9 mmol/L (8-16); Aspartate Amino Transferase 21 U/L (14-36); Bilirubin,Total 0.7 mg/dL (0.2-1.3); Blood Urea Nitrogen 16 mg/dL (7-17); Carbon Dioxide 31 mmol/L (22-30); Chloride 100 mmol/L (98-107); Cholesterol 114 mg/dL (0-200); Estimated Glomerular Filt Rate > 60; Glucose 126 mg/dL (65-110); HDL Direct 35 mg/dL; Sodium 140 mmol/L (137-145); Triglycerides 64 mg/dL (<150)
[2023-07-16 13:48] LABS: Hemoglobin A1C 6.7 % (<5.7)
[2023-07-16 13:55] LABS: LDL Cholesterol Direct 63 mg/dL
[2023-07-16 13:58] LABS: Microalbumin Urine Random 19.3 mg/L (0-16.7)
[2023-07-16 14:01] LABS: Creatinine Urine 170.6 mg/dL; MALB Creatinine Ratio 11.3 mg/g (0-30)
[2023-07-16 14:05] LABS: Free T4 Free Thyroxine 1.32 ng/mL (0.78-2.19)
[2023-07-16 14:09] LABS: Total Triiodothyronine (T3) 1.26 NG/ML (0.97-1.69)
== END 2023-07-16 09:17 | disposition home or self-care (01) ==
PROVIDERS: PCP Family Medicine; Visit Provider Internal Medicine Hematology & Oncology
DX: E11.9 Type 2 diabetes mellitus without complications (principal); I10 Essential (primary) hypertension; J44.1 Chronic obstructive pulmonary disease with (acute) exacerbation; E78.5 Hyperlipidemia, unspecified; E55.9 Vitamin D deficiency, unspecified; R53.83 Other fatigue; R53.1 Weakness
CPT/HCPCS: 36415; 80053; 80061; 82043; 83036; 84439; 84443; 84480; 85025

== ENCOUNTER 2023-09-13 10:12 | Outpatient (CLI) | payer OTHER, SELFPAY ==
[2023-09-13 12:57] LABS: NT Pro B Type Natriuretic Pept < 20 pg/mL (19.9-100)
== END 2023-09-13 10:13 | disposition home or self-care (01) ==
LOC: ANHLAB 10:14
PROVIDERS: PCP Family Medicine; Visit Provider Family Medicine
DX: E87.6 Hypokalemia (principal)
CPT/HCPCS: 36415; 83880

== ENCOUNTER 2023-10-14 11:14 | Outpatient (CLI) | payer OTHER, SELFPAY ==
[2023-10-14 12:02] LABS: Alanine Aminotransferase 14 U/L (6-35); Albumin Level 4.3 g/dL (3.5-5.1); Alkaline Phosphatase 109 U/L (38-126); Anion Gap 5 mmol/L (4-12); Aspartate Amino Transferase 18 U/L (14-36); Bilirubin,Total 0.7 mg/dL (0.2-1.3); Blood Urea Nitrogen 15 mg/dL (7-17); Calcium 9.8 mg/dL (8.4-10.2); Carbon Dioxide 32 mmol/L (22-30); Chloride 102 mmol/L (98-107); Estimated Glomerular Filt Rate > 60; Glucose 115 mg/dL (65-110); Potassium 3.4 mmol/L (3.4-5.0); Sodium 139 mmol/L (137-145)
== END 2023-10-14 11:15 | disposition home or self-care (01) ==
LOC: ANHLAB 11:16
PROVIDERS: PCP Family Medicine; Visit Provider Internal Medicine Hematology & Oncology
DX: E87.6 Hypokalemia (principal); I10 Essential (primary) hypertension
CPT/HCPCS: 36415; 80053